=== PATIENT | male | born 1960 | race Caucasian/White ===

== ENCOUNTER → 2018-08-13 07:20 | Outpatient (CLI) | payer OTHER, SELFPAY ==
[2018-08-13 08:41] LABS: Cholesterol 210 mg/dL (140-199); HDL Cholesterol 36 mg/dL (40-60); LDL Cholesterol Calculated 151 mg/dL (<100); Triglycerides 114 mg/dL (35-150)
[2018-08-13 08:58] LABS: Vitamin D 25 Hydroxy (D3) 28.3 ng/mL (30.0-100.0)
== END ==
PROVIDERS: PCP Student in an Organized Health Care Education/Training Program; Visit Provider Student in an Organized Health Care Education/Training Program
DX: E55.9 Vitamin D deficiency, unspecified (principal); Z13.220 Encounter for screening for lipoid disorders
CPT/HCPCS: 36415; 80061; 82306

== ENCOUNTER → 2019-02-27 09:18 | Outpatient (CLI) | payer OTHER, SELFPAY ==
--- NOTE | 2019-02-27 09:19 | DI.MRI.S_ITS ---
PROCEDURE: MR LUMBAR SPINE WO CON INDICATIONS: LOW BACK PAIN TECHNIQUE: Noncontrast sagittal T1 spin echo and T2 fast echo, sagittal STIR, axial T1 and T2 fast spin echo through the lumbar spine. In cases with scoliosis, additional coronal T2 fast spin echo may be performed. COMPARISON: None. FINDINGS: Image quality: Excellent. Alignment and Curvature: Grade 1 retrolisthesis of L3 on L4 and L4 on L5. Bone Marrow: Multilevel degenerative endplate sclerosis and spurring. Diffuse facet arthropathy. No acute fracture Spinal Cord: Conus medullaris terminates at the L1 level. Visualized cord demonstrates normal signal and size. Paraspinous Soft Tissues: No paravertebral masses. L1-L2: Normal appearance. L2-L3: Normal appearance. L3-L4: Broad-based posterior disc bulge was mildly asymmetric, right greater than left. There is also bilateral facet disease. Dorsal epidural lipomatosis present there is mild to moderate central canal narrowing. Asymmetric effacement of the right lateral recess, with nerve root compression. There is minimal if any effacement of the left lateral recess. No definite right foraminal narrowing. Mild left foraminal stenosis.. L4-L5: Broad-based posterior disc bulge and bilateral facet arthropathy. No definite central canal narrowing. Partial effacement of both lateral recesses with bilaterally symmetric appearance. Severe bilateral foraminal stenoses with nerve root compression L5-S1: Normal appearance. IMPRESSION: Transitional lumbosacral vertebra designated L5. Please see the montage image for additional clarification of the spinal segmental level nomenclature used in this report and prior to any spinal intervention. Grade 1 retrolisthesis of L3 on L4 and L4 on L5. Mild to moderate L3-L4 central canal narrowing. Asymmetric right-sided subarticular narrowing raising the possibility of impingement of the right descending L4 nerve root. Severe bilateral L4-L5 foraminal stenoses. Dictated by: Edgar Pisano M.D. on 02/27/2019 at 11:02 Approved by: Edgar Pisano M.D. on 02/27/2019 at 11:10
== END ==
PROVIDERS: PCP Student in an Organized Health Care Education/Training Program; Visit Provider Student in an Organized Health Care Education/Training Program
DX: M54.5 Low back pain (principal); M43.16 Spondylolisthesis, lumbar region; M48.061 Spinal stenosis, lumbar region without neurogenic claudication
CPT/HCPCS: 72148

== ENCOUNTER → 2019-06-25 10:17 | Outpatient (CLI) | payer OTHER, SELFPAY ==
[2019-06-25 11:03] LABS: Hematocrit 46.8 % (41-53); Hemoglobin 16.3 g/dL (13.5-17.5); Mean Corpuscular HGB Conc 34.8 % (30-36); Mean Corpuscular Hemoglobin 31.1 PG (26-34); Mean Corpuscular Volume 89.4 fL (80-100); Platelet Count 206 X10^3/uL (150-400); Red Blood Cell Count 5.23 X10^6/uL (4.5-5.9); Red Cell Distribution Width 13.3 % (11.6-14.8); White Blood Cell Count 7.1 X10^3/uL (4.5-11.0)
[2019-06-25 11:23] LABS: HEMOLYSIS < 15 (0-50); Iron 70 ug/dL (49-181)
[2019-06-25 11:34] LABS: Percent Iron Saturation 26 % (20-50); Total Iron Binding Capacity 269 ug/dL (261-462); Transferrin 223 mg/dL (206-381)
[2019-06-25 11:58] LABS: Prostate Specific Antigen Scrn 1.95 ng/mL (0.1-4.0)
[2019-06-25 12:17] LABS: Vitamin B12 418 pg/mL (239-931)
== END ==
PROVIDERS: PCP Student in an Organized Health Care Education/Training Program; Visit Provider Student in an Organized Health Care Education/Training Program
DX: Z12.5 Encounter for screening for malignant neoplasm of prostate (principal); R25.2 Cramp and spasm; G62.9 Polyneuropathy, unspecified; G25.81 Restless legs syndrome
CPT/HCPCS: 36415; 82607; 83540; 83550; 83735; 85027; G0103

== ENCOUNTER → 2020-02-26 13:13 | Outpatient (CLI) | payer OTHER, SELFPAY ==
--- NOTE | 2020-02-26 13:14 | DI.RAD.S_ITS ---
PROCEDURE: XR RIBS LT MIN 3V W CXR1V INDICATIONS: fall; Rib contusion TECHNIQUE: 2 views of the left ribs were acquired, along with a single view chest. COMPARISON: None. FINDINGS: Surgical changes and devices: None. Bones and chest wall: No fractures or dislocations. No suspicious bony lesions. Overlying soft tissues appear unremarkable. Lungs and pleura: No pleural effusions or pneumothorax. Lungs appear clear. Mediastinum: Mediastinal contours appear normal. Heart size is normal. IMPRESSION: No fracture found. Please note that nondisplaced rib fractures may be more easily visualized in approximately 5 days after trauma and if unusual symptoms persist follow-up delayed plain films could be obtained. No pneumothorax seen. Dictated by: Brennan Sears M.D. on 02/26/2020 at 14:04 Approved by: Brennan Sears M.D. on 02/26/2020 at 14:06
== END ==
PROVIDERS: PCP Student in an Organized Health Care Education/Training Program; Referring Provider Student in an Organized Health Care Education/Training Program; Visit Provider Student in an Organized Health Care Education/Training Program
DX: S20.219A Contusion of unspecified front wall of thorax, initial encounter (principal); W19.XXXA Unspecified fall, initial encounter
CPT/HCPCS: 71101

== ENCOUNTER → 2020-09-08 09:31 | Outpatient (CLI) | payer OTHER, SELFPAY ==
[2020-09-08 10:27] LABS: BUN Creatinine Ratio 20.7 (6-22); Blood Urea Nitrogen 17 mg/dL (9-20); Carbon Dioxide 33 mmol/L (22-32); Chloride 101 mmol/L (98-107); Estimated Glomerular Filt Rate > 60.0 mL/min (>60); Glucose 85 mg/dL (70-100); HEMOLYSIS < 15 (0-50); Potassium 3.6 mmol/L (3.4-5.1); Sodium 138 mmol/L (137-145)
[2020-09-08 10:49] LABS: Prostate Specific Antigen Scrn 2.24 ng/mL (0.1-4.0)
[2020-09-08 10:57] LABS: Vitamin D 25 Hydroxy (D3) 20.4 ng/mL (30.0-100.0)
== END ==
PROVIDERS: PCP Student in an Organized Health Care Education/Training Program; Referring Provider Student in an Organized Health Care Education/Training Program; Visit Provider Student in an Organized Health Care Education/Training Program
DX: G25.81 Restless legs syndrome (principal); Z79.899 Other long term (current) drug therapy; Z12.5 Encounter for screening for malignant neoplasm of prostate; E55.9 Vitamin D deficiency, unspecified
CPT/HCPCS: 36415; 80048; 82306; G0103

== ENCOUNTER 2021-08-04 08:15 | Outpatient (RCR) | payer OTHER, SELFPAY ==
--- NOTE | 2021-07-12 17:32 | PT.OIE ---
Current Diagnoses Other cervical disc degeneration, unspecified cervical region (07/12/21) Radiculopathy, lumbar region (07/12/21) Cervicalgia (07/12/21) Other muscle spasm (07/12/21) Past Medical History (Last Updated 09/08/20 @ 09:31 by Rickie Kumar MD) ADHD Anorexia nervosa Depression Lower back injury (~1980) Visit Care Team Role Provider Type Rickie Kumar MD Attending Provider Physician Family Provider Primary Care Provider Referring Provider Specialty: Internal Medicine Address: [address] [place] [address], [address], [facility] Email: [email or web address] Physical Therapy Initial Evaluation PT-OP-A Visit Information Start: 07/12/21 16:51 Freq: Status: Active Protocol: Document 07/12/21 09:45 DCW (Rec: 07/12/21 17:05 DCW [id number]) Out-Patient Physical Therapy Visit Information Visit Information Visit Type Initial Evaluation Visit Start Time 09:45 Visit Stop Time 10:30 Total Visit Minutes 45 Visit Number 1 Number of AWARD CLERK Visits 0 Evaluation Information Evaluation Date 07/12/21 PT-OP-B Current Condition Start: 07/12/21 16:51 Freq: Status: Active Protocol: Document 07/12/21 09:45 DCW (Rec: 07/12/21 17:05 DCW [id number]) Current Condition History of Current Condition Onset Date Long-standing history Current Complaints Cervical pain, radicular right arm and shoulder pain History of Current Condition Pt is a 60 year old male presenting with worsening complaints of neck pain and right shoulder pain. 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 Pt notes he always does this with is right hand, and it seems as though he is beginning to have more and more pain and difficulty when he does it. Pt notes he has the most pain just letting his arm hang down at his side, reports it just hangs there and feels heavy. Has noticed that if he props his arm up with an arm rest or holds it over his head, it doesn't hurt as much. Pt reports that just last night, he was woken up by an 8/10. Pt also does note that he has a 40+ year history of low back pain since slipping and falling when he was in the [employer] in the early 80s. Slowly progressed from intermittent pain to a fairly constant and debilitating pain, but had a steroid injection a few years ago, which seems to have fixed it for now, but he would also like his low back addressed if possible, so he doesn't need to worry about another injection in the future. PT-OP-C Subjective Start: 07/12/21 16:51 Freq: Status: Active Protocol: Document 07/12/21 09:45 DCW (Rec: 07/12/21 17:05 DCW [id number]) OP-PT Subjective Patient Comments Patient Comments I think my doctor is trying to get me an MRI, but I don't know if he actually ordered it yet. Patient Questionnaires Quick Dash- Upper Extremity Quick Dash UE Score 22.73% Quick Dash UE Impairment 20 to 39% Impaired (Score 20- 39) OP-PT Pain Assessment Pain Assessment Grid Paper Pain Assessment Grid Completed Yes Location Right Shoulder Intensity 7 Scale Used Numeric (0 - 10) PT-OP-F Manual Assessment Start: 07/12/21 16:51 Freq: Status: Active Protocol: Document 07/12/21 09:45 DCW (Rec: 07/12/21 17:16 DCW [id number]) Manual Assessments Soft Tissue Assessment Soft Tissue Mobility Assessment Moderate-severe tone with tenderness to palpation 3/4: wincing and withdraw along right suboccipitals, cervical paraspinals, levator scap, upper trap, and parascapular musculature. Joint Mobility Assessment Joint Mobility Assessment Very poor right scapulothoracic rhythm with shoulder abduction, entire right shoulder depressed at rest PT-OP-J Posture/Palpation/Skin Start: 07/12/21 17:17 Freq: Status: Active Protocol: Document 07/12/21 09:45 DCW (Rec: 07/12/21 17:18 DCW [id number]) Posture Evaluation Position Sitting Evaluation View Posterior Head/C-Spine Posture Rotated Right,Side Bent Right Scapula Posture (R) Rotated Down,(R) Depressed PT-OP-K Range of Motion Start: 07/12/21 16:51 Freq: Status: Active Protocol: Document 07/12/21 09:45 DCW (Rec: 07/12/21 17:16 DCW [id number]) Cervical Spine Range of Motion Cervical Spine Active Degrees Testing Position Sitting Flexion 40 Extension 30 Rotation Left 70 Rotation Right 72 Lateral Flexion Left 25 Lateral Flexion Right 35 ROM Limitations Soft Tissue Tightness,Muscle Tone,Pain PT-OP-L Special Tests Start: 07/12/21 16:51 Freq: Status: Active Protocol: Document 07/12/21 09:45 DCW (Rec: 07/12/21 17:16 DCW [id number]) Special Tests Cervical Spine Special Tests Traction Test Results Instant relief of symptoms Spurling's Test Test Results Positive Slump Test Results Positive Passive Neck Flexion Test Results Positive Foraminal Compression Test Results Positive Shoulder Special Tests Painful Arc Test Results Positive R Passive ER Rotator Cuff Test Results Negative Empty Can Test Results Negative Drop Arm Rotator Cuff Test Results Negative Belly Press Test Results Negative PT-OP-M Strength Start: 07/12/21 16:51 Freq: Status: Active Protocol: Document 07/12/21 09:45 DCW (Rec: 07/12/21 17:16 DCW [id number]) Cervical Spine Strength Cervical Spine Manual Muscle Testing Comments Attempted deep neck flexor activation resulted in instant increased radicular symptoms Shoulder Strength Shoulder Manual Muscle Testing Right Flexion 4 Good Abduction (C5) 4 Good External Rotation 4 Good Internal Rotation 4 Good Left Flexion 4+ Good+ Abduction (C5) 4+ Good+ External Rotation 4+ Good+ Internal Rotation 4+ Good+ PT-OP-R Modalities Start: 07/12/21 16:51 Freq: Status: Active Protocol: Document 07/12/21 09:45 DCW (Rec: 07/12/21 17:05 DCW [id number]) Spinal Traction Traction Treatment Cervical Method Static Patient Position Supine Force Applied (Pounds) 20 Duration of Treatment (Minutes) 10 Heating Pad Applied No PT-OP-T Assessment and Plan Start: 07/12/21 16:51 Freq: Status: Active Protocol: Document 07/12/21 09:45 DCW (Rec: 07/12/21 17:32 DCW [id number]) Physical Therapy Assessment Rehab Potential Rehabilitation Potential Good Evaluation Complexity Number of Personal Factors/Comorbidities 1-2 Number of Body Systems Impaired 3 Clinical Presentation at Evaluation Stable Impairments Impairments Functional Activities, Functional Mobility,Pain, Posture,ROM,Soft Tissue Mobility,Strength,Tone Goals Three Impairment All cervical compression results in increased radicular symptoms [facility]cf Goal (LTG) Pt to tolerate all cervical positioning and compression without increased radicular symptoms to show centralization of pain LTG Duration 09/12/21 Two Impairment Cervical/shoulder pain interrupts pt's sleep Chcf Goal (LTG) Pt to report no instances of pain-caused sleep disturbances over an entire week. LTG Duration 09/12/21 One Impairment Pt does not have an appropriate home exercise program Short Term Goal (STG) Pt to be independent and compliant with an appropriate HEP STG Duration 08/12/21 Assessment Summary Assessment Pt presents with signs and symptoms consistent with cervical nerve impingement, resulting in radicular symptoms. Pt's pain and stiffness through his arm are immediately and completely resolved with cervical traction. Pt does have some fairly significant tone throughout his right paraspinals and shoulder, which may be due to the cervical impingement, or may actually be tight enough that his musculature is pulling on his neck with enough force to create a decreased foraminal space. Pt should benefit from skilled therapy focusing on reducing tone and improving intervertebral spacing, however if pt does not make appropriate progress, may greatly benefit from advanced imaging. Did have trial of traction unit today, and pt was entirely pain-free during entire trial, but slowly regain the pain after traction was released. Physical Therapy Plan Frequency and Duration Frequency of Treatment 2x/Week Duration of Treatment Two months Plan of Care Start Date 07/12/21 Plan of Care End Date 09/12/21 Therapeutic Interventions Therapeutic Interventions Home Exercise Program,Joint Mobilizations,Manual Therapy, Neuromuscular Re-education, Patient/Caregiver Education, Self-Care/Home Management,Soft Tissue Mobilization, Therapeutic Activities, Therapeutic Exercises Modalities Cold Pack/Ice Massage,Electric Stimulation,Hot Packs, Traction- Mechanical Next Visit Focus/Plan Next Note Type Treatment Note Next Visit Plan Traction, STM, joint mobs, cervical strengthening as tolerated
--- NOTE | 2021-07-12 17:35 | PT.OPPOC ---
Physical, Occupational & Speech Therapy At [facility] Current Diagnoses Other cervical disc degeneration, unspecified cervical region (07/12/21) Radiculopathy, lumbar region (07/12/21) Cervicalgia (07/12/21) Other muscle spasm (07/12/21) Visit Care Team Role Provider Type Rickie Kumar MD Attending Provider Physician Family Provider Primary Care Provider Referring Provider Specialty: Internal Medicine Address: [address] [place] [address], [facility] [address], [address] Email: [email or web address] Plan Of Care PT-OP-T Assessment and Plan Start: 07/12/21 16:51 Freq: Status: Active Protocol: Document 07/12/21 09:45 DCW (Rec: 07/12/21 17:32 DCW [id number]) Physical Therapy Assessment Rehab Potential Rehabilitation Potential Good Evaluation Complexity Number of Personal Factors/Comorbidities 1-2 Number of Body Systems Impaired 3 Clinical Presentation at Evaluation Stable Impairments Impairments Functional Activities, Functional Mobility,Pain, Posture,ROM,Soft Tissue Mobility,Strength,Tone Goals Three Impairment All cervical compression results in increased radicular symptoms Yeast Culture Developer Goal (LTG) Pt to tolerate all cervical positioning and compression without increased radicular symptoms to show certralization of pain LTG Duration 09/12/21 Two Impairment Cervical/shoulder pain interrupts pt's sleep Halfway Goal (LTG) Pt to report no instances of pain-caused sleep disturbances over an entire week. LTG Duration 09/12/21 One Impairment Pt does not have an appropriate home exercise program Short Term Goal (STG) Pt to be independent and compliant with an appropriate HEP STG Duration 08/12/21 Assessment Summary Assessment Pt presents with signs and symptoms consistent with cervical nerve impingement, resulting in radicular symptoms. Pt's pain and stiffness through his arm are immediately and completely resolved with cervical traction. Pt does have some fairly significant tone throughout his right paraspinals and shoulder, which may be due to the cervical impingement, or may actually be tight enough that his musculature is pulling on his neck with enough force to create a decreased foraminal space. Pt should benefit from skilled therapy focusing on reducing tone and improving intervertebral spacing, however if pt does not make appropriate progress, may greatly benefit from advanced imaging. Did have trial of traction unit today, and pt was entirely pain-free during entire trial, but slowly regain the pain after traction was released. Physical Therapy Plan Frequency and Duration Frequency of Treatment 2x/Week Duration of Treatment Two months Plan of Care Start Date 07/12/21 Plan of Care End Date 09/12/21 Therapeutic Interventions Therapeutic Interventions Home Exercise Program,Joint Mobilizations,Manual Therapy, Neuromuscular Re-education, Patient/Caregiver Education, Self-Care/Home Management,Soft Tissue Mobilization, Therapeutic Activities, Therapeutic Exercises Modalities Cold Pack/Ice Massage,Electric Stimulation,Hot Packs, Traction- Mechanical Next Visit Focus/Plan Next Note Type Treatment Note Next Visit Plan Traction, STM, joint mobs, cervical strengthening as tolerated Plan of Care Dates Plan of Care Start Date 07/12/21 Plan of Care End Date 09/12/21 Electronically Signed by: Benitez Mcneal, PT 07/12/21 3329 Please Sign and Return: I have reviewed this Plan of Care and certify that the skilled therapy services above are required to meet the patient?s needs. Physician Signature Date Printed Name and Credentials Clinical Instructor Signature Printed Name and Credentials
--- NOTE | 2021-07-14 10:00 | PT.OTN ---
Current Diagnoses Other cervical disc degeneration, unspecified cervical region (07/14/21) Radiculopathy, lumbar region (07/14/21) Cervicalgia (07/14/21) Other muscle spasm (07/14/21) Physical Therapy Treatment Note PT-OP-A Visit Information Start: 07/12/21 16:51 Freq: Status: Active Protocol: Document 07/14/21 09:05 SP (Rec: 07/14/21 10:27 SP [id number]) Out-Patient Physical Therapy Visit Information Visit Information Visit Type Treatment Note Visit Start Time 09:05 Visit Stop Time 10:00 Total Visit Minutes 55 Visit Number 2 Number of SETTER UP Visits 2 Evaluation Information Evaluation Date 07/12/21 PT-OP-B Current Condition Start: 07/12/21 16:51 Freq: Status: Active Protocol: Document 07/12/21 09:45 DCW (Rec: 07/12/21 17:05 DCW [id number]) Current Condition History of Current Condition Onset Date Long-standing history Current Complaints Cervical pain, radicular right arm and shoulder pain History of Current Condition Pt is a 60 year old male presenting with worsening complaints of neck pain and right shoulder pain. 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 Pt notes he always does this with is right hand, and it seems as though he is beginning to have more and more pain and difficulty when he does it. Pt notes he has the most pain just letting his arm hang down at his side , reports it just hangs there and feels heavy. Has noticed that if he props his arm up with an arm rest or holds it over his head, it doesn't hurt as much. Pt reports that just last night, he was woken up by an 8/10. Pt also does note that he has a 40+ year history of low back pain since slipping and falling when he was in the [employer] in the early 80s. Slowly progressed from intermittent pain to a fairly constant and debilitating pain , but had a steroid injection a few years ago, which seems to have fixed it for now, but he would also like his low back addressed if possible, so he doesn't need to worry about another injection in the future. PT-OP-C Subjective Start: 07/12/21 16:51 Freq: Status: Active Protocol: Document 07/14/21 09:05 SP (Rec: 07/14/21 10:27 SP [id number]) OP-PT Subjective Patient Comments Patient Comments Pt reports felt better after last tx but pain comes back within few hours after treatment. He finds slumped forward positioning gives the best relief standing better than sitting better than laying down. Upon arrival today R arm tucked in jacket for support and states neck and R shld achiness/pain 03/01 extends posterior neck posterior R shld and into distal deltoid. Sleeps on L side with pillow under head only and finds wakes up often needing to reposition for comfort. He was so suprise how instantaneous the pain is relieved with traction and wants to start with today and what else can he do beside stretching R arm over head postioning for self relief because can't PT-OP-F Manual Assessment Start: 07/12/21 16:51 Freq: Status: Active Protocol: Document 07/12/21 09:45 DCW (Rec: 07/12/21 17:16 DCW [id number]) Manual Assessments Soft Tissue Assessment Soft Tissue Mobility Assessment Moderate-severe tone with tenderness to palpation 3/4: wincing and withdraw along right suboccipitals, cervical paraspinals, levator scap, upper trap, and parascapular musculature. Joint Mobility Assessment Joint Mobility Assessment Very poor right scapulothoracic rhythm with shoulder abduction, entire right shoulder depressed at rest PT-OP-J Posture/Palpation/Skin Start: 07/12/21 17:17 Freq: Status: Active Protocol: Document 07/12/21 09:45 DCW (Rec: 07/12/21 17:18 DCW [id number]) Posture Evaluation Position Sitting Evaluation View Posterior Head/C-Spine Posture Rotated Right,Side Bent Right Scapula Posture (R) Rotated Down,(R) Depressed PT-OP-K Range of Motion Start: 07/12/21 16:51 Freq: Status: Active Protocol: Document 07/12/21 09:45 DCW (Rec: 07/12/21 17:16 DCW [id number]) Cervical Spine Range of Motion Cervical Spine Active Degrees Testing Position Sitting Flexion 40 Extension 30 Rotation Left 70 Rotation Right 72 Lateral Flexion Left 25 Lateral Flexion Right 35 ROM Limitations Soft Tissue Tightness,Muscle Tone,Pain PT-OP-L Special Tests Start: 07/12/21 16:51 Freq: Status: Active Protocol: Document 07/12/21 09:45 DCW (Rec: 07/12/21 17:16 DCW [id number]) Special Tests Cervical Spine Special Tests Traction Test Results Instant relief of symptoms Spurling's Test Test Results Positive Slump Test Results Positive Passive Neck Flexion Test Results Positive Foraminal Compression Test Results Positive Shoulder Special Tests Painful Arc Test Results Positive R Passive ER Rotator Cuff Test Results Negative Empty Can Test Results Negative Drop Arm Rotator Cuff Test Results Negative Belly Press Test Results Negative PT-OP-M Strength Start: 07/12/21 16:51 Freq: Status: Active Protocol: Document 07/12/21 09:45 DCW (Rec: 07/12/21 17:16 DCW [id number]) Cervical Spine Strength Cervical Spine Manual Muscle Testing Comments Attempted deep neck flexor activation resulted in instant increased radicular symptoms Shoulder Strength Shoulder Manual Muscle Testing Right Flexion 4 Good Abduction (C5) 4 Good External Rotation 4 Good Internal Rotation 4 Good Left Flexion 4+ Good+ Abduction (C5) 4+ Good+ External Rotation 4+ Good+ Internal Rotation 4+ Good+ PT-OP-Q Treatments Start: 07/12/21 16:51 Freq: Status: Active Protocol: Document 07/14/21 09:05 SP (Rec: 07/14/21 10:27 SP [id number]) Therapeutic Exercises Standing Exercises CS retraction w/ elevated posture Standing Exercise Name added to HEP- understands in successful positioning, will progress upright Reps/Minutes 3 reps x5 sec hold Comments good feedback tolerant range in standing end of tx self STMs Standing Exercise Name UT, interscap racquetball in sock on wall, theracane post neck MWM nod/turn Side right Resistance added to HEP if can get Reps/Minutes 20 ball on wall, theracane post neck head nods/turns small range Comments good feedback response with short time MWM ulnar nerve glide Standing Exercise Name added to HEP Side right Reps/Minutes x5 Comments good feedback response and proper form- painfree tricep stretch Standing Exercise Name reviewed self HEP given by physican Side right Equipment Used supported by LUE or against wall Reps/Minutes 20 sec x3 Comments good feedback pain relief Manual Therapy Treatment Soft Tissue Mobilization STMs Comments assessed post neck UT, subocc, pec minor, deltoid in supine- not welcoming positioning, assessed seated, still irritating. benefited self racquetball on wall with good hurt massage that think will help Educated small movements time good feedback tolerance (10 sec today x3) Manual Techniques PNF R scapulothoracic Type retraction/ depression Body Location R scap comples Body Position L Sidelying Comments has good relief almost no pain , but only for few reps. Self-Care/Home Management Treatment Education Patient Education Joint Protection,Posture Other Education Education on L side tolerant sleeping w/ pillows between knees, under R arm and pillow under head enought maintain neutral CS alignment. Pt states better less pain if flexes CS more forward. PT-OP-R Modalities Start: 07/12/21 16:51 Freq: Status: Active Protocol: Document 07/14/21 09:05 SP (Rec: 07/14/21 10:27 SP [id number]) Spinal Traction Traction Treatment Cervical Method Static Patient Position Supine Force Applied (Pounds) 12 Duration of Treatment (Minutes) 10 Heating Pad Applied No Traction Treatment Comment wedge under BLE: instant relief of posterior neck pain 7-8/10 radiating posterolateral L shld and into tricep and bicep to elbow, only feels little achy bruise feeling into distal deltoid, painfree systems otherwise. At end 9.5 min starts to feel achiness into R distal deltoid . PT-OP-T Assessment and Plan Start: 07/12/21 16:51 Freq: Status: Active Protocol: Document 07/14/21 09:05 SP (Rec: 07/14/21 10:27 SP [id number]) Physical Therapy Assessment Goals Three Impairment All cervical compression results in increased radicular symptoms Thermoforming Machine Operator Goal (LTG) Pt to tolerate all cervical positioning and compression without increased radicular symptoms to show certralization of pain LTG Duration 09/12/21 Two Impairment Cervical/shoulder pain interrupts pt's sleep Thermoforming Machine Operator Goal (LTG) Pt to report no instances of pain-caused sleep disturbances over an entire week. LTG Duration 09/12/21 One Impairment Pt does not have an appropriate home exercise program Short Term Goal (STG) Pt to be independent and compliant with an appropriate HEP STG Duration 08/12/21 Assessment Summary Assessment Pt continues present signs/ symptoms of cervical impingement, gets instant relief from cervical traction almost symptom free in neck and R arm. Assessed R Shld AROM [place] tricep stretch gave alot of relief is his go to at home. Initiated self massage racquetball on wall to UT, interscap, theracane for posterior neck MWM turn/ nods, ulnar nerve glide then able to do CS chin tuck in painfree range to start. End of tx I feel better and things can do at home. Pt wondered if would be beneficial to get a home cervical traction unit now knowing is constant relief. Physical Therapy Plan Frequency and Duration Frequency of Treatment 2x/Week Duration of Treatment Two months Plan of Care Start Date 07/12/21 Plan of Care End Date 09/12/21 Therapeutic Interventions Therapeutic Interventions Home Exercise Program,Joint Mobilizations,Manual Therapy, Neuromuscular Re-education, Patient/Caregiver Education, Self-Care/Home Management,Soft Tissue Mobilization, Therapeutic Activities, Therapeutic Exercises Modalities Cold Pack/Ice Massage,Electric Stimulation,Hot Packs, Traction- Mechanical Next Visit Focus/Plan Next Note Type Treatment Note Next Visit Plan Assess reponse to CS traction, new HEP: self STMs, ulnar nerve glide, tricep stretch, CS retraction ease AROM in standing. NExt tx: continue traction, assess if home unit beneficial , start process. POC: Traction, STM, joint mobs , cervical strengthening as tolerated
--- NOTE | 2021-07-21 10:30 | PT.OTN ---
Current Diagnoses Other cervical disc degeneration, unspecified cervical region (07/14/21) Radiculopathy, lumbar region (07/14/21) Cervicalgia (07/14/21) Other muscle spasm (07/14/21) Physical Therapy Treatment Note PT-OP-A Visit Information Start: 07/12/21 16:51 Freq: Status: Active Protocol: Document 07/21/21 09:50 SP (Rec: 07/21/21 10:32 SP [id number]) Out-Patient Physical Therapy Visit Information Visit Information Visit Type Treatment Note Visit Start Time 09:50 Visit Stop Time 10:30 Total Visit Minutes 40 Visit Number 3 Number of [employer] Visits 3 Evaluation Information Evaluation Date 07/12/21 PT-OP-B Current Condition Start: 07/12/21 16:51 Freq: Status: Active Protocol: Document 07/12/21 09:45 DCW (Rec: 07/12/21 17:05 DCW [id number]) Current Condition History of Current Condition Onset Date Long-standing history Current Complaints Cervical pain, radicular right arm and shoulder pain History of Current Condition Pt is a 60 year old male presenting with worsening complaints of neck pain and right shoulder pain. 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 Pt notes he always does this with is right hand, and it seems as though he is beginning to have more and more pain and difficulty when he does it. Pt notes he has the most pain just letting his arm hang down at his side , reports it just hangs there and feels heavy. Has noticed that if he props his arm up with an arm rest or holds it over his head, it doesn't hurt as much. Pt reports that just last night, he was woken up by an 8/10. Pt also does note that he has a 40+ year history of low back pain since slipping and falling when he was in the [employer] in the early 80s. Slowly progressed from intermittent pain to a fairly constant and debilitating pain , but had a steroid injection a few years ago, which seems to have fixed it for now, but he would also like his low back addressed if possible, so he doesn't need to worry about another injection in the future. PT-OP-C Subjective Start: 07/12/21 16:51 Freq: Status: Active Protocol: Document 07/21/21 09:50 SP (Rec: 07/21/21 10:32 SP [id number]) OP-PT Subjective Patient Comments Patient Comments Pt reports self massage ball on wall is irritating so stopped. Good response and compliant wtih stretches and exercises seem to work the best. Tried to do elevated push up and caused pain so stopped. Wants to understand mechanics of his pain and how get rid of and if can get home traction unit. Was painfree yesterday and slept well but having pain again today. Pain not really in feet today. Pt reports hasn't had any back pain in quite a while. PT-OP-F Manual Assessment Start: 07/12/21 16:51 Freq: Status: Active Protocol: Document 07/12/21 09:45 DCW (Rec: 07/12/21 17:16 DCW [id number]) Manual Assessments Soft Tissue Assessment Soft Tissue Mobility Assessment Moderate-severe tone with tenderness to palpation 3/4: wincing and withdraw along right suboccipitals, cervical paraspinals, levator scap, upper trap, and parascapular musculature. Joint Mobility Assessment Joint Mobility Assessment Very poor right scapulothoracic rhythm with shoulder abduction, entire right shoulder depressed at rest PT-OP-J Posture/Palpation/Skin Start: 07/12/21 17:17 Freq: Status: Active Protocol: Document 07/12/21 09:45 DCW (Rec: 07/12/21 17:18 DCW [id number]) Posture Evaluation Position Sitting Evaluation View Posterior Head/C-Spine Posture Rotated Right,Side Bent Right Scapula Posture (R) Rotated Down,(R) Depressed PT-OP-K Range of Motion Start: 07/12/21 16:51 Freq: Status: Active Protocol: Document 07/12/21 09:45 DCW (Rec: 07/12/21 17:16 DCW [id number]) Cervical Spine Range of Motion Cervical Spine Active Degrees Testing Position Sitting Flexion 40 Extension 30 Rotation Left 70 Rotation Right 72 Lateral Flexion Left 25 Lateral Flexion Right 35 ROM Limitations Soft Tissue Tightness,Muscle Tone,Pain PT-OP-L Special Tests Start: 07/12/21 16:51 Freq: Status: Active Protocol: Document 07/12/21 09:45 DCW (Rec: 07/12/21 17:16 DCW [id number]) Special Tests Cervical Spine Special Tests Traction Test Results Instant relief of symptoms Spurling's Test Test Results Positive Slump Test Results Positive Passive Neck Flexion Test Results Positive Foraminal Compression Test Results Positive Shoulder Special Tests Painful Arc Test Results Positive R Passive ER Rotator Cuff Test Results Negative Empty Can Test Results Negative Drop Arm Rotator Cuff Test Results Negative Belly Press Test Results Negative PT-OP-M Strength Start: 07/12/21 16:51 Freq: Status: Active Protocol: Document 07/12/21 09:45 DCW (Rec: 07/12/21 17:16 DCW [id number]) Cervical Spine Strength Cervical Spine Manual Muscle Testing Comments Attempted deep neck flexor activation resulted in instant increased radicular symptoms Shoulder Strength Shoulder Manual Muscle Testing Right Flexion 4 Good Abduction (C5) 4 Good External Rotation 4 Good Internal Rotation 4 Good Left Flexion 4+ Good+ Abduction (C5) 4+ Good+ External Rotation 4+ Good+ Internal Rotation 4+ Good+ PT-OP-Q Treatments Start: 07/12/21 16:51 Freq: Status: Active Protocol: Document 07/21/21 09:50 SP (Rec: 07/21/21 10:32 SP [id number]) Therapeutic Exercises Sidelying Exercises open book Sidelying Exercise Name added to HEP Side right Reps/Minutes x5 w/ and without 3 breath Comments cued head turn with arm- good feedback painfree, good movement feel Standing Exercises lat stretch Standing Exercise Name lat and shld abd at wall Side right Resistance reviewed self stretch Reps/Minutes 30 hold x2 each Comments good response eliminates pain but can' do all the time CS retraction w/ elevated posture Standing Exercise Name reviewed HEP- understands in successful positioning, will progress upright Reps/Minutes 3 reps x5 sec hold Comments good feedback tolerant range in free standing away from wall self STMs Standing Exercise Name causes more irritation so DC ulnar nerve glide Standing Exercise Name reviewed HEP Side right Reps/Minutes x5 Comments good feedback response and proper form- painfree tricep stretch Standing Exercise Name reviewed self HEP given by physican Side right Equipment Used supported by LUE or against wall Reps/Minutes 20 sec x3 Comments good feedback eliminates pain PT-OP-R Modalities Start: 07/12/21 16:51 Freq: Status: Active Protocol: Document 07/21/21 09:50 SP (Rec: 07/21/21 10:32 SP [id number]) Spinal Traction Traction Treatment Cervical Method Static Patient Position Supine Force Applied (Pounds) 20 Duration of Treatment (Minutes) 10 Heating Pad Applied No Traction Treatment Comment wedge under BLE: instant pain relief. 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 LTG Duration 09/12/21 One Impairment Pt does not have an appropriate home exercise program Short Term Goal (STG) Pt to be independent and compliant with an appropriate HEP STG Duration 08/12/21 Assessment Summary Assessment Pt responded well to HEP review in standing best and initiated open book in sidelying with RUE painfree, unable to perform > 1 rep with L before pain returned in R shdl due to laying on it so can only perform RUE at this time with relief. Pt continues to have instant relief with mechanical traction, meets with PT next. [employer] discussed calling referring physicain Dr Kumar to possibly start progess to acquire a home unit for carryover relief. Pt reports waiting on referral reivew for order of MRI. Physical Therapy Plan Frequency and Duration Frequency of Treatment 2x/Week Duration of Treatment Two months Plan of Care Start Date 07/12/21 Plan of Care End Date 09/12/21 Therapeutic Interventions Therapeutic Interventions Home Exercise Program,Joint Mobilizations,Manual Therapy, Neuromuscular Re-education, Patient/Caregiver Education, Self-Care/Home Management,Soft Tissue Mobilization, Therapeutic Activities, Therapeutic Exercises Modalities Cold Pack/Ice Massage,Electric Stimulation,Hot Packs, Traction- Mechanical Next Visit Focus/Plan Next Note Type Treatment Note Next Visit Plan Assess reponse to HEP and carryover deminished relief from mechanical cervical traction end of last tx. NExt tx: continue traction, assess if home unit beneficial , start process. POC: Traction, STM, joint mobs , cervical strengthening as tolerated
--- NOTE | 2021-07-25 11:55 | PT.OTN ---
Current Diagnoses Other cervical disc degeneration, unspecified cervical region (07/25/21) Radiculopathy, lumbar region (07/25/21) Cervicalgia (07/25/21) Other muscle spasm (07/25/21) Physical Therapy Treatment Note PT-OP-A Visit Information Start: 07/12/21 16:51 Freq: Status: Active Protocol: Document 07/25/21 11:19 DCW (Rec: 07/25/21 11:55 DCW [id number]) Out-Patient Physical Therapy Visit Information Visit Information Visit Type Treatment Note Visit Start Time 11:19 Visit Stop Time 12:00 Total Visit Minutes 41 Visit Number 4 Number of WARNING COORDINATION METEOROLOGIST Visits 0 Evaluation Information Evaluation Date 07/12/21 PT-OP-B Current Condition Start: 07/12/21 16:51 Freq: Status: Active Protocol: Document 07/12/21 09:45 DCW (Rec: 07/12/21 17:05 DCW [id number]) Current Condition History of Current Condition Onset Date Long-standing history Current Complaints Cervical pain, radicular right arm and shoulder pain History of Current Condition Pt is a 60 year old male presenting with worsening complaints of neck pain and right shoulder pain. 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 Pt notes he always does this with is right hand, and it seems as though he is beginning to have more and more pain and difficulty when he does it. Pt notes he has the most pain just letting his arm hang down at his side , reports it just hangs there and feels heavy. Has noticed that if he props his arm up with an arm rest or holds it over his head, it doesn't hurt as much. Pt reports that just last night, he was woken up by an 8/10. Pt also does note that he has a 40+ year history of low back pain since slipping and falling when he was in the [employer] in the early 80s. Slowly progressed from intermittent pain to a fairly constant and debilitating pain , but had a steroid injection a few years ago, which seems to have fixed it for now, but he would also like his low back addressed if possible, so he doesn't need to worry about another injection in the future. PT-OP-C Subjective Start: 07/12/21 16:51 Freq: Status: Active Protocol: Document 07/25/21 11:19 DCW (Rec: 07/25/21 11:55 DCW [id number]) OP-PT Subjective Patient Comments Patient Comments Pt reports he has been doing much better, has found that if he maintains a forward flexed posture through his cervical spine, it takes pressure off his nerve and he feels much better. PT-OP-F Manual Assessment Start: 07/12/21 16:51 Freq: Status: Active Protocol: Document 07/12/21 09:45 DCW (Rec: 07/12/21 17:16 DCW [id number]) Manual Assessments Soft Tissue Assessment Soft Tissue Mobility Assessment Moderate-severe tone with tenderness to palpation 3/4: wincing and withdraw along right suboccipitals, cervical paraspinals, levator scap, upper trap, and parascapular musculature. Joint Mobility Assessment Joint Mobility Assessment Very poor right scapulothoracic rhythm with shoulder abduction, entire right shoulder depressed at rest PT-OP-J Posture/Palpation/Skin Start: 07/12/21 17:17 Freq: Status: Active Protocol: Document 07/12/21 09:45 DCW (Rec: 07/12/21 17:18 DCW [id number]) Posture Evaluation Position Sitting Evaluation View Posterior Head/C-Spine Posture Rotated Right,Side Bent Right Scapula Posture (R) Rotated Down,(R) Depressed PT-OP-K Range of Motion Start: 07/12/21 16:51 Freq: Status: Active Protocol: Document 07/12/21 09:45 DCW (Rec: 07/12/21 17:16 DCW [id number]) Cervical Spine Range of Motion Cervical Spine Active Degrees Testing Position Sitting Flexion 40 Extension 30 Rotation Left 70 Rotation Right 72 Lateral Flexion Left 25 Lateral Flexion Right 35 ROM Limitations Soft Tissue Tightness,Muscle Tone,Pain PT-OP-L Special Tests Start: 07/12/21 16:51 Freq: Status: Active Protocol: Document 07/12/21 09:45 DCW (Rec: 07/12/21 17:16 DCW [id number]) Special Tests Cervical Spine Special Tests Traction Test Results Instant relief of symptoms Spurling's Test Test Results Positive Slump Test Results Positive Passive Neck Flexion Test Results Positive Foraminal Compression Test Results Positive Shoulder Special Tests Painful Arc Test Results Positive R Passive ER Rotator Cuff Test Results Negative Empty Can Test Results Negative Drop Arm Rotator Cuff Test Results Negative Belly Press Test Results Negative PT-OP-M Strength Start: 07/12/21 16:51 Freq: Status: Active Protocol: Document 07/12/21 09:45 DCW (Rec: 07/12/21 17:16 DCW [id number]) Cervical Spine Strength Cervical Spine Manual Muscle Testing Comments Attempted deep neck flexor activation resulted in instant increased radicular symptoms Shoulder Strength Shoulder Manual Muscle Testing Right Flexion 4 Good Abduction (C5) 4 Good External Rotation 4 Good Internal Rotation 4 Good Left Flexion 4+ Good+ Abduction (C5) 4+ Good+ External Rotation 4+ Good+ Internal Rotation 4+ Good+ PT-OP-Q Treatments Start: 07/12/21 16:51 Freq: Status: Active Protocol: Document 07/25/21 11:19 DCW (Rec: 07/25/21 11:55 DCW [id number]) Manual Therapy Treatment Soft Tissue Mobilization STMs Body Location UT, suboccipitals, pecs Manual Traction Cervical Body Position Supine Manual Techniques PNF R scapulothoracic Type retraction/ depression Body Location R scap comples Body Position L Sidelying PT-OP-R Modalities Start: 07/12/21 16:51 Freq: Status: Active Protocol: Document 07/25/21 11:19 DCW (Rec: 07/25/21 11:55 DCW [id number]) Spinal Traction Traction Treatment Cervical Method Static Patient Position Supine Force Applied (Pounds) 20 Duration of Treatment (Minutes) 10 Heating Pad Applied No Traction Treatment Comment wedge under BLE: instant pain relief. PT-OP-T Assessment and Plan Start: 07/12/21 16:51 Freq: Status: Active Protocol: Document 07/25/21 11:19 DCW (Rec: 07/25/21 11:55 DCW [id number]) Physical Therapy Assessment Goals Three Impairment All cervical compression results in increased radicular symptoms Sales Associate Key Holder Goal (LTG) Pt to tolerate all cervical positioning and compression without increased radicular symptoms to show certralization of pain LTG Duration 09/12/21 Two Impairment Cervical/shoulder pain interrupts pt's sleep [facility] Goal (LTG) Pt to report no instances of pain-caused sleep disturbances over an entire week. LTG Duration 09/12/21 One Impairment Pt does not have an appropriate home exercise program Short Term Goal (STG) Pt to be independent and compliant with an appropriate HEP STG Duration 08/12/21 Assessment Summary Assessment Pt still having significant nerve pain down arm with most activities, has instant relief with traction. PCP has submitted orders for MRI, waiting for scheduling at this time. Physical Therapy Plan Frequency and Duration Frequency of Treatment 2x/Week Duration of Treatment Two months Plan of Care Start Date 07/12/21 Plan of Care End Date 09/12/21 Therapeutic Interventions Therapeutic Interventions Home Exercise Program,Joint Mobilizations,Manual Therapy, Neuromuscular Re-education, Patient/Caregiver Education, Self-Care/Home Management,Soft Tissue Mobilization, Therapeutic Activities, Therapeutic Exercises Modalities Cold Pack/Ice Massage,Electric Stimulation,Hot Packs, Traction- Mechanical Next Visit Focus/Plan Next Note Type Treatment Note Next Visit Plan Assess reponse to HEP and carryover deminished relief from mechanical cervical traction end of last tx. NExt tx: continue traction, assess if home unit beneficial , start process. POC: Traction, STM, joint mobs , cervical strengthening as tolerated
--- NOTE | 2021-07-27 15:52 | PT.OTN ---
Current Diagnoses Other cervical disc degeneration, unspecified cervical region (07/27/21) Radiculopathy, lumbar region (07/27/21) Cervicalgia (07/27/21) Other muscle spasm (07/27/21) Physical Therapy Treatment Note PT-OP-A Visit Information Start: 07/12/21 16:51 Freq: Status: Active Protocol: Document 07/27/21 15:15 DCW (Rec: 07/27/21 15:52 DCW [id number]) Out-Patient Physical Therapy Visit Information Visit Information Visit Type Treatment Note Visit Start Time 15:15 Visit Stop Time 16:00 Total Visit Minutes 45 Visit Number 5 Number of ENVIRONMENTAL LAWYER Visits 0 Evaluation Information Evaluation Date 07/12/21 PT-OP-B Current Condition Start: 07/12/21 16:51 Freq: Status: Active Protocol: Document 07/12/21 09:45 DCW (Rec: 07/12/21 17:05 DCW [id number]) Current Condition History of Current Condition Onset Date Long-standing history Current Complaints Cervical pain, radicular right arm and shoulder pain History of Current Condition Pt is a 60 year old male presenting with worsening complaints of neck pain and right shoulder pain. 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 Pt notes he always does this with is right hand, and it seems as though he is beginning to have more and more pain and difficulty when he does it. Pt notes he has the most pain just letting his arm hang down at his side , reports it just hangs there and feels heavy. Has noticed that if he props his arm up with an arm rest or holds it over his head, it doesn't hurt as much. Pt reports that just last night, he was woken up by an 8/10. Pt also does note that he has a 40+ year history of low back pain since slipping and falling when he was in the [employer] in the early 80s. Slowly progressed from intermittent pain to a fairly constant and debilitating pain , but had a steroid injection a few years ago, which seems to have fixed it for now, but he would also like his low back addressed if possible, so he doesn't need to worry about another injection in the future. PT-OP-C Subjective Start: 07/12/21 16:51 Freq: Status: Active Protocol: Document 07/27/21 15:15 DCW (Rec: 07/27/21 15:52 DCW [id number]) OP-PT Subjective Patient Comments Patient Comments Pt notes he is feeling pretty good, has been doing inclined push-up with good results. PT-OP-F Manual Assessment Start: 07/12/21 16:51 Freq: Status: Active Protocol: Document 07/12/21 09:45 DCW (Rec: 07/12/21 17:16 DCW [id number]) Manual Assessments Soft Tissue Assessment Soft Tissue Mobility Assessment Moderate-severe tone with tenderness to palpation 3/4: wincing and withdraw along right suboccipitals, cervical paraspinals, levator scap, upper trap, and parascapular musculature. Joint Mobility Assessment Joint Mobility Assessment Very poor right scapulothoracic rhythm with shoulder abduction, entire right shoulder depressed at rest PT-OP-J Posture/Palpation/Skin Start: 07/12/21 17:17 Freq: Status: Active Protocol: Document 07/12/21 09:45 DCW (Rec: 07/12/21 17:18 DCW [id number]) Posture Evaluation Position Sitting Evaluation View Posterior Head/C-Spine Posture Rotated Right,Side Bent Right Scapula Posture (R) Rotated Down,(R) Depressed PT-OP-K Range of Motion Start: 07/12/21 16:51 Freq: Status: Active Protocol: Document 07/12/21 09:45 DCW (Rec: 07/12/21 17:16 DCW [id number]) Cervical Spine Range of Motion Cervical Spine Active Degrees Testing Position Sitting Flexion 40 Extension 30 Rotation Left 70 Rotation Right 72 Lateral Flexion Left 25 Lateral Flexion Right 35 ROM Limitations Soft Tissue Tightness,Muscle Tone,Pain PT-OP-L Special Tests Start: 07/12/21 16:51 Freq: Status: Active Protocol: Document 07/12/21 09:45 DCW (Rec: 07/12/21 17:16 DCW [id number]) Special Tests Cervical Spine Special Tests Traction Test Results Instant relief of symptoms Spurling's Test Test Results Positive Slump Test Results Positive Passive Neck Flexion Test Results Positive Foraminal Compression Test Results Positive Shoulder Special Tests Painful Arc Test Results Positive R Passive ER Rotator Cuff Test Results Negative Empty Can Test Results Negative Drop Arm Rotator Cuff Test Results Negative Belly Press Test Results Negative PT-OP-M Strength Start: 07/12/21 16:51 Freq: Status: Active Protocol: Document 07/12/21 09:45 DCW (Rec: 07/12/21 17:16 DCW [id number]) Cervical Spine Strength Cervical Spine Manual Muscle Testing Comments Attempted deep neck flexor activation resulted in instant increased radicular symptoms Shoulder Strength Shoulder Manual Muscle Testing Right Flexion 4 Good Abduction (C5) 4 Good External Rotation 4 Good Internal Rotation 4 Good Left Flexion 4+ Good+ Abduction (C5) 4+ Good+ External Rotation 4+ Good+ Internal Rotation 4+ Good+ PT-OP-Q Treatments Start: 07/12/21 16:51 Freq: Status: Active Protocol: Document 07/27/21 15:15 DCW (Rec: 07/27/21 15:52 DCW [id number]) Therapeutic Exercises Supine Exercises 3 Supine Exercise Name Supine shoulder flexion Side bilateral Resistance 2# 2 Supine Exercise Name Serratus punch Side bilateral Resistance 2# 1 Supine Exercise Name Horizontal Adduction Side bilateral Resistance 2# Manual Therapy Treatment Soft Tissue Mobilization STMs Body Location UT, suboccipitals, pecs Manual Traction Cervical Body Position Supine Manual Techniques PNF R scapulothoracic Type retraction/ depression Body Location R scap comples Body Position L Sidelying PT-OP-R Modalities Start: 07/12/21 16:51 Freq: Status: Active Protocol: Document 07/27/21 15:15 DCW (Rec: 07/27/21 15:52 DCW [id number]) Spinal Traction Traction Treatment Cervical Method Static Patient Position Supine Force Applied (Pounds) 20 Duration of Treatment (Minutes) 10 Heating Pad Applied No Traction Treatment Comment wedge under BLE: instant pain relief. PT-OP-T Assessment and Plan Start: 07/12/21 16:51 Freq: Status: Active Protocol: Document 07/27/21 15:15 DCW (Rec: 07/27/21 15:52 DCW [id number]) Physical Therapy Assessment Goals Three Impairment All cervical compression results in increased radicular symptoms [facility] Goal (LTG) Pt to tolerate all cervical positioning and compression without increased radicular symptoms to show certralization of pain LTG Duration 09/12/21 Two Impairment Cervical/shoulder pain interrupts pt's sleep [facility] Goal (LTG) Pt to report no instances of pain-caused sleep disturbances over an entire week. LTG Duration 09/12/21 One Impairment Pt does not have an appropriate home exercise program Short Term Goal (STG) Pt to be independent and compliant with an appropriate HEP STG Duration 08/12/21 Assessment Summary Assessment Pt continues to have fairly strong pain response with all STM, also increased pain vocalizations during strengthening, but pt denied pain. Physical Therapy Plan Frequency and Duration Frequency of Treatment 2x/Week Duration of Treatment Two months Plan of Care Start Date 07/12/21 Plan of Care End Date 09/12/21 Therapeutic Interventions Therapeutic Interventions Home Exercise Program,Joint Mobilizations,Manual Therapy, Neuromuscular Re-education, Patient/Caregiver Education, Self-Care/Home Management,Soft Tissue Mobilization, Therapeutic Activities, Therapeutic Exercises Modalities Cold Pack/Ice Massage,Electric Stimulation,Hot Packs, Traction- Mechanical Next Visit Focus/Plan Next Note Type Treatment Note Next Visit Plan Assess response to HEP and carryover diminished relief from mechanical cervical traction end of last tx. NExt tx: continue traction, assess if home unit beneficial , start process. POC: Traction, STM, joint mobs , cervical strengthening as tolerated
--- NOTE | 2021-08-02 17:38 | PT.OTN ---
Current Diagnoses Other cervical disc degeneration, unspecified cervical region (08/02/21) Radiculopathy, lumbar region (08/02/21) Cervicalgia (08/02/21) Other muscle spasm (08/02/21) Physical Therapy Treatment Note PT-OP-A Visit Information Start: 07/12/21 16:51 Freq: Status: Active Protocol: Document 08/02/21 16:45 DCW (Rec: 08/02/21 17:38 DCW [id number]) Out-Patient Physical Therapy Visit Information Visit Information Visit Type Treatment Note Visit Start Time 16:45 Visit Stop Time 17:30 Total Visit Minutes 45 Visit Number 6 Number of MULTIMEDIA SPECIALIST Visits 0 Evaluation Information Evaluation Date 07/12/21 PT-OP-B Current Condition Start: 07/12/21 16:51 Freq: Status: Active Protocol: Document 07/12/21 09:45 DCW (Rec: 07/12/21 17:05 DCW [id number]) Current Condition History of Current Condition Onset Date Long-standing history Current Complaints Cervical pain, radicular right arm and shoulder pain History of Current Condition Pt is a 60 year old male presenting with worsening complaints of neck pain and right shoulder pain. 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 Pt notes he always does this with is right hand, and it seems as though he is beginning to have more and more pain and difficulty when he does it. Pt notes he has the most pain just letting his arm hang down at his side , reports it just hangs there and feels heavy. Has noticed that if he props his arm up with an arm rest or holds it over his head, it doesn't hurt as much. Pt reports that just last night, he was woken up by an 8/10. Pt also does note that he has a 40+ year history of low back pain since slipping and falling when he was in the [employer] in the early 80s. Slowly progressed from intermittent pain to a fairly constant and debilitating pain , but had a steroid injection a few years ago, which seems to have fixed it for now, but he would also like his low back addressed if possible, so he doesn't need to worry about another injection in the future. PT-OP-C Subjective Start: 07/12/21 16:51 Freq: Status: Active Protocol: Document 08/02/21 16:45 DCW (Rec: 08/02/21 17:38 DCW [id number]) OP-PT Subjective Patient Comments Patient Comments Things are going really well, I'm feeling good. Patient Questionnaires Quick Dash- Upper Extremity Quick Dash UE Score 25% Quick Dash UE Impairment 20 to 39% Impaired (Score 20- 39) PT-OP-F Manual Assessment Start: 07/12/21 16:51 Freq: Status: Active Protocol: Document 07/12/21 09:45 DCW (Rec: 07/12/21 17:16 DCW [id number]) Manual Assessments Soft Tissue Assessment Soft Tissue Mobility Assessment Moderate-severe tone with tenderness to palpation 3/4: wincing and withdraw along right suboccipitals, cervical paraspinals, levator scap, upper trap, and parascapular musculature. Joint Mobility Assessment Joint Mobility Assessment Very poor right scapulothoracic rhythm with shoulder abduction, entire right shoulder depressed at rest PT-OP-J Posture/Palpation/Skin Start: 07/12/21 17:17 Freq: Status: Active Protocol: Document 07/12/21 09:45 DCW (Rec: 07/12/21 17:18 DCW [id number]) Posture Evaluation Position Sitting Evaluation View Posterior Head/C-Spine Posture Rotated Right,Side Bent Right Scapula Posture (R) Rotated Down,(R) Depressed PT-OP-K Range of Motion Start: 07/12/21 16:51 Freq: Status: Active Protocol: Document 07/12/21 09:45 DCW (Rec: 07/12/21 17:16 DCW [id number]) Cervical Spine Range of Motion Cervical Spine Active Degrees Testing Position Sitting Flexion 40 Extension 30 Rotation Left 70 Rotation Right 72 Lateral Flexion Left 25 Lateral Flexion Right 35 ROM Limitations Soft Tissue Tightness,Muscle Tone,Pain PT-OP-L Special Tests Start: 07/12/21 16:51 Freq: Status: Active Protocol: Document 07/12/21 09:45 DCW (Rec: 07/12/21 17:16 DCW [id number]) Special Tests Cervical Spine Special Tests Traction Test Results Instant relief of symptoms Spurling's Test Test Results Positive Slump Test Results Positive Passive Neck Flexion Test Results Positive Foraminal Compression Test Results Positive Shoulder Special Tests Painful Arc Test Results Positive R Passive ER Rotator Cuff Test Results Negative Empty Can Test Results Negative Drop Arm Rotator Cuff Test Results Negative Belly Press Test Results Negative PT-OP-M Strength Start: 07/12/21 16:51 Freq: Status: Active Protocol: Document 07/12/21 09:45 DCW (Rec: 07/12/21 17:16 DCW [id number]) Cervical Spine Strength Cervical Spine Manual Muscle Testing Comments Attempted deep neck flexor activation resulted in instant increased radicular symptoms Shoulder Strength Shoulder Manual Muscle Testing Right Flexion 4 Good Abduction (C5) 4 Good External Rotation 4 Good Internal Rotation 4 Good Left Flexion 4+ Good+ Abduction (C5) 4+ Good+ External Rotation 4+ Good+ Internal Rotation 4+ Good+ PT-OP-Q Treatments Start: 07/12/21 16:51 Freq: Status: Active Protocol: Document 08/02/21 16:45 DCW (Rec: 08/02/21 17:38 DCW [id number]) Manual Therapy Treatment Soft Tissue Mobilization STMs Body Location UT, suboccipitals, pecs Manual Traction Cervical Body Position Supine Manual Techniques PNF R scapulothoracic Type retraction/ depression Body Location R scap comples Body Position L Sidelying PT-OP-R Modalities Start: 07/12/21 16:51 Freq: Status: Active Protocol: Document 08/02/21 16:45 DCW (Rec: 08/02/21 17:38 DCW [id number]) Spinal Traction Traction Treatment Cervical Method Static Patient Position Supine Force Applied (Pounds) 20 Duration of Treatment (Minutes) 10 Heating Pad Applied No Traction Treatment Comment wedge under BLE: instant pain relief. PT-OP-T Assessment and Plan Start: 07/12/21 16:51 Freq: Status: Active Protocol: Document 08/02/21 16:45 DCW (Rec: 08/02/21 17:38 DCW [id number]) Physical Therapy Assessment Goals Three Impairment All cervical compression results in increased radicular symptoms Metal Engineering Process Worker Goal (LTG) Pt to tolerate all cervical positioning and compression without increased radicular symptoms to show certralization of pain LTG Duration 09/12/21 Two Impairment Cervical/shoulder pain interrupts pt's sleep [facility] Goal (LTG) Pt to report no instances of pain-caused sleep disturbances over an entire week. LTG Duration 09/12/21 One Impairment Pt does not have an appropriate home exercise program Short Term Goal (STG) Pt to be independent and compliant with an appropriate HEP STG Duration 08/12/21 Assessment Summary Assessment Pt making better progress recently, less pain with STM and improved cervical and shoulder mobility. Still having radicular pain neck/ shoulder to elbow, which is relieved by traction Physical Therapy Plan Frequency and Duration Frequency of Treatment 2x/Week Duration of Treatment Two months Plan of Care Start Date 07/12/21 Plan of Care End Date 09/12/21 Therapeutic Interventions Therapeutic Interventions Home Exercise Program,Joint Mobilizations,Manual Therapy, Neuromuscular Re-education, Patient/Caregiver Education, Self-Care/Home Management,Soft Tissue Mobilization, Therapeutic Activities, Therapeutic Exercises Modalities Cold Pack/Ice Massage,Electric Stimulation,Hot Packs, Traction- Mechanical Next Visit Focus/Plan Next Note Type Treatment Note Next Visit Plan Assess reponse to HEP and carryover deminished relief from mechanical cervical traction end of last tx. NExt tx: continue traction, assess if home unit beneficial , start process. POC: Traction, STM, joint mobs , cervical strengthening as tolerated
--- NOTE | 2021-08-04 09:00 | PT.OTN ---
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 Pt notes he always does this with is right hand, and it seems as though he is beginning to have more and more pain and difficulty when he does it. Pt notes he has the most pain just letting his arm hang down at his side , reports it just hangs there and feels heavy. Has noticed that if he props his arm up with an arm rest or holds it over his head, it doesn't hurt as much. Pt reports that just last night, he was woken up by an 8/10. Pt also does note that he has a 40+ year history of low back pain since slipping and falling when he was in the [employer] in the early 80s. Slowly progressed from intermittent pain to a fairly constant and debilitating pain , but had a steroid injection a few years ago, which seems to have fixed it for now, but he would also like his low back addressed if possible, so he doesn't need to worry about another injection in the future. PT-OP-C Subjective Start: 07/12/21 16:51 Freq: Status: Active Protocol: Document 08/04/21 08:14 SP (Rec: 08/04/21 09:03 SP [id number]) OP-PT Subjective Patient Comments Patient Comments Pt reported slipped on garage stairs and landed on his low back/ pelvis but inadvertently made his neck pain go away. States only having slight discomfort in R shld. Compliant with HEP and no problems and recorrrecting posture in passengers seat to decreased irritation gets up into mid back and neck. He also stated sees coworkers doing stretching and discussing doing yoga and helps them feel better, not tight/ discomfort, wondering science behind that. PT-OP-F Manual Assessment Start: 07/12/21 16:51 Freq: Status: Active Protocol: Document 07/12/21 09:45 DCW (Rec: 07/12/21 17:16 DCW [id number]) Manual Assessments Soft Tissue Assessment Soft Tissue Mobility Assessment Moderate-severe tone with tenderness to palpation 3/4: wincing and withdraw along right suboccipitals, cervical paraspinals, levator scap, upper trap, and parascapular musculature. Joint Mobility Assessment Joint Mobility Assessment Very poor right scapulothoracic rhythm with shoulder abduction, entire right shoulder depressed at rest PT-OP-J Posture/Palpation/Skin Start: 07/12/21 17:17 Freq: Status: Active Protocol: Document 07/12/21 09:45 DCW (Rec: 07/12/21 17:18 DCW [id number]) Posture Evaluation Position Sitting Evaluation View Posterior Head/C-Spine Posture Rotated Right,Side Bent Right Scapula Posture (R) Rotated Down,(R) Depressed PT-OP-K Range of Motion Start: 07/12/21 16:51 Freq: Status: Active Protocol: Document 07/12/21 09:45 DCW (Rec: 07/12/21 17:16 DCW [id number]) Cervical Spine Range of Motion Cervical Spine Active Degrees Testing Position Sitting Flexion 40 Extension 30 Rotation Left 70 Rotation Right 72 Lateral Flexion Left 25 Lateral Flexion Right 35 ROM Limitations Soft Tissue Tightness,Muscle Tone,Pain PT-OP-L Special Tests Start: 07/12/21 16:51 Freq: Status: Active Protocol: Document 07/12/21 09:45 DCW (Rec: 07/12/21 17:16 DCW [id number]) Special Tests Cervical Spine Special Tests Traction Test Results Instant relief of symptoms Spurling's Test Test Results Positive Slump Test Results Positive Passive Neck Flexion Test Results Positive Foraminal Compression Test Results Positive Shoulder Special Tests Painful Arc Test Results Positive R Passive ER Rotator Cuff Test Results Negative Empty Can Test Results Negative Drop Arm Rotator Cuff Test Results Negative Belly Press Test Results Negative PT-OP-M Strength Start: 07/12/21 16:51 Freq: Status: Active Protocol: Document 07/12/21 09:45 DCW (Rec: 07/12/21 17:16 DCW [id number]) Cervical Spine Strength Cervical Spine Manual Muscle Testing Comments Attempted deep neck flexor activation resulted in instant increased radicular symptoms Shoulder Strength Shoulder Manual Muscle Testing Right Flexion 4 Good Abduction (C5) 4 Good External Rotation 4 Good Internal Rotation 4 Good Left Flexion 4+ Good+ Abduction (C5) 4+ Good+ External Rotation 4+ Good+ Internal Rotation 4+ Good+ PT-OP-Q Treatments Start: 07/12/21 16:51 Freq: Status: Active Protocol: Document 08/04/21 08:14 SP (Rec: 08/04/21 09:03 SP [id number]) Therapeutic Exercises Supine Exercises 3 Supine Exercise Name Supine shoulder flexion Side bilateral Resistance 2# DB Reps/Minutes x10 Comments painfree range 2 Supine Exercise Name Serratus punch Side bilateral Resistance 2# DB Reps/Minutes x10 Comments 1 press, little twinge in R AC, cued scap depression 1 Supine Exercise Name HABD Side bilateral Resistance 2# DB Reps/Minutes x10 Comments irritated GH Jt so stopped Sidelying Exercises shld ER Sidelying Exercise Name added to HEP Side right Resistance #2 DB Equipment Used towel under arm Reps/Minutes x10 Comments painfree, cued no [place] recruit. open book Sidelying Exercise Name HEP Side right Resistance AROM> #2 DB Reps/Minutes x5 w/ and without 3 breath Comments cued head turn with arm- good feedback painfree Standing Exercises shld ER Standing Exercise Name added to HEP Side bilateral Resistance TB #1 Equipment Used back to wall Reps/Minutes x10 Comments cued postural alignment rows Standing Exercise Name added to HEP Side bilateral Resistance TB #1 Reps/Minutes x10 Comments cued for scap stab: retract/ depress CS retraction w/ elevated posture Standing Exercise Name reviewed HEP- understands in successful positioning Equipment Used back to wall Reps/Minutes 3 reps x5 sec hold Comments good feedback, cued awareness TA Manual Therapy Treatment Soft Tissue Mobilization STMs Body Location UT, lev scap, infraspinatus. Mobilization Type Instrument Assisted,Strumming, Sustained Pressure,Trigger Point Release Joint Mobilizations scapulothoracic mobs Joint inferior/ depression for mobility awareness for open book and added DB Comments improved AROM post manual PT-OP-R Modalities Start: 07/12/21 16:51 Freq: Status: Active Protocol: Document 08/02/21 16:45 DCW (Rec: 08/02/21 17:38 DCW [id number]) Spinal Traction Traction Treatment Cervical Method Static Patient Position Supine Force Applied (Pounds) 20 Duration of Treatment (Minutes) 10 Heating Pad Applied No Traction Treatment Comment wedge under BLE: instant pain relief. PT-OP-T Assessment and Plan Start: 07/12/21 16:51 Freq: Status: Active Protocol: Document 08/04/21 08:14 SP (Rec: 08/04/21 09:03 SP [id number]) Physical Therapy Assessment Goals Three Impairment All cervical compression results in increased radicular symptoms Wildlife Ecologist Goal (LTG) Pt to tolerate all cervical positioning and compression without increased radicular symptoms to show certralization of pain LTG Duration 09/12/21 Two Impairment Cervical/shoulder pain interrupts pt's sleep Detention Goal (LTG) Pt to report no instances of pain-caused sleep disturbances over an entire week. LTG Duration 09/12/21 One Impairment Pt does not have an appropriate home exercise program Short Term Goal (STG) Pt to be independent and compliant with an appropriate HEP STG Duration 08/12/21 Assessment Summary Assessment Pt was able to progress light resistance strengthening without pain, cued for postural corrections for alignment and form with improvement. Decreased pain manual infraspinatus and self ball on wall was helpful today , did to long and to hard at home but better understanding during tx for benefits. Physical Therapy Plan Frequency and Duration Frequency of Treatment 2x/Week Duration of Treatment Two months Plan of Care Start Date 07/12/21 Plan of Care End Date 09/12/21 Therapeutic Interventions Therapeutic Interventions Home Exercise Program,Joint Mobilizations,Manual Therapy, Neuromuscular Re-education, Patient/Caregiver Education, Self-Care/Home Management,Soft Tissue Mobilization, Therapeutic Activities, Therapeutic Exercises Modalities Cold Pack/Ice Massage,Electric Stimulation,Hot Packs, Traction- Mechanical Next Visit Focus/Plan Next Note Type Treatment Note Next Visit Plan Assess reponse to HEP. If continue no pain in neck. NExt tx: continue traction, assess if home unit beneficial , start process. POC: Traction, STM, joint mobs , cervical strengthening as tolerated
--- NOTE | 2022-05-30 16:54 | PT.OPDS ---
Current Diagnoses Other cervical disc degeneration, unspecified cervical region (08/04/21) Radiculopathy, lumbar region (08/04/21) Cervicalgia (08/04/21) Other muscle spasm (08/04/21) Visit Care Team Role Provider Type Rickie Kumar MD Attending Provider Physician Family Provider Primary Care Provider Referring Provider Specialty: Internal Medicine Address: [address] [place] [address], [address], [facility] Email: [email or web address] Visit Number Visit Number 7 Discharge Summary PT-OP-B Current Condition Start: 07/12/21 16:51 Freq: Status: Active Protocol: Document 07/12/21 09:45 DCW (Rec: 07/12/21 17:05 DCW [id number]) Current Condition History of Current Condition Onset Date Long-standing history Current Complaints Cervical pain, radicular right arm and shoulder pain History of Current Condition Pt is a 60 year old male presenting with worsening complaints of neck pain and right shoulder pain. 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 Pt notes he always does this with is right hand, and it seems as though he is beginning to have more and more pain and difficulty when he does it. Pt notes he has the most pain just letting his arm hang down at his side , reports it just hangs there and feels heavy. Has noticed that if he props his arm up with an arm rest or holds it over his head, it doesn't hurt as much. Pt reports that just last night, he was woken up by an 8/10. Pt also does note that he has a 40+ year history of low back pain since slipping and falling when he was in the [employer] in the early 80s. Slowly progressed from intermittent pain to a fairly constant and debilitating pain , but had a steroid injection a few years ago, which seems to have fixed it for now, but he would also like his low back addressed if possible, so he doesn't need to worry about another injection in the future. PT-OP-C Subjective Start: 07/12/21 16:51 Freq: Status: Active Protocol: Document 08/04/21 08:14 SP (Rec: 08/04/21 09:03 SP [id number]) OP-PT Subjective Patient Comments Patient Comments Pt reported slipped on garage stairs and landed on his low back/ pelvis but inadvertently made his neck pain go away. States only having slight discomfort in R shld. Compliant with HEP and no problems and recorrrecting posture in passengers seat to decreased irritation gets up into mid back and neck. He also stated sees coworkers doing stretching and discussing doing yoga and helps them feel better, not tight/ discomfort, wondering science behind that. PT-OP-F Manual Assessment Start: 07/12/21 16:51 Freq: Status: Active Protocol: Document 07/12/21 09:45 DCW (Rec: 07/12/21 17:16 DCW [id number]) Manual Assessments Soft Tissue Assessment Soft Tissue Mobility Assessment Moderate-severe tone with tenderness to palpation 3/4: wincing and withdraw along right suboccipitals, cervical paraspinals, levator scap, upper trap, and parascapular musculature. Joint Mobility Assessment Joint Mobility Assessment Very poor right scapulothoracic rhythm with shoulder abduction, entire right shoulder depressed at rest PT-OP-J Posture/Palpation/Skin Start: 07/12/21 17:17 Freq: Status: Active Protocol: Document 07/12/21 09:45 DCW (Rec: 07/12/21 17:18 DCW [id number]) Posture Evaluation Position Sitting Evaluation View Posterior Head/C-Spine Posture Rotated Right,Side Bent Right Scapula Posture (R) Rotated Down,(R) Depressed PT-OP-K Range of Motion Start: 07/12/21 16:51 Freq: Status: Active Protocol: Document 07/12/21 09:45 DCW (Rec: 07/12/21 17:16 DCW [id number]) Cervical Spine Range of Motion Cervical Spine Active Degrees Testing Position Sitting Flexion 40 Extension 30 Rotation Left 70 Rotation Right 72 Lateral Flexion Left 25 Lateral Flexion Right 35 ROM Limitations Soft Tissue Tightness,Muscle Tone,Pain PT-OP-L Special Tests Start: 07/12/21 16:51 Freq: Status: Active Protocol: Document 07/12/21 09:45 DCW (Rec: 07/12/21 17:16 DCW [id number]) Special Tests Cervical Spine Special Tests Traction Test Results Instant relief of symptoms Spurling's Test Test Results Positive Slump Test Results Positive Passive Neck Flexion Test Results Positive Foraminal Compression Test Results Positive Shoulder Special Tests Painful Arc Test Results Positive R Passive ER Rotator Cuff Test Results Negative Empty Can Test Results Negative Drop Arm Rotator Cuff Test Results Negative Belly Press Test Results Negative PT-OP-M Strength Start: 07/12/21 16:51 Freq: Status: Active Protocol: Document 07/12/21 09:45 DCW (Rec: 07/12/21 17:16 DCW [id number]) Cervical Spine Strength Cervical Spine Manual Muscle Testing Comments Attempted deep neck flexor activation resulted in instant increased radicular symptoms Shoulder Strength Shoulder Manual Muscle Testing Right Flexion 4 Good Abduction (C5) 4 Good External Rotation 4 Good Internal Rotation 4 Good Left Flexion 4+ Good+ Abduction (C5) 4+ Good+ External Rotation 4+ Good+ Internal Rotation 4+ Good+ PT-OP-T Assessment and Plan Start: 07/12/21 16:51 Freq: Status: Active Protocol: Document 05/30/22 16:54 DCW (Rec: 05/30/22 16:54 DCW [id number]) Physical Therapy Assessment Assessment Summary Assessment Pt has now not been seen in more than 9 months, will discharge from skilled therapy at this time. Physical Therapy Plan Discharge Physical Therapy Discharge Reasons No Longer Attending PT
== END 2022-06-01 10:56 | disposition home or self-care (01) ==
LOC: PHYS 08:15
PROVIDERS: Family Provider Student in an Organized Health Care Education/Training Program; PCP Student in an Organized Health Care Education/Training Program; Referring Provider Student in an Organized Health Care Education/Training Program; Visit Provider Student in an Organized Health Care Education/Training Program
DX: M62.838 Other muscle spasm (principal); M54.16 Radiculopathy, lumbar region; M50.30 Other cervical disc degeneration, unspecified cervical region
CPT/HCPCS: 97012; 97110; 97140; 97161; 97535

== ENCOUNTER → 2022-09-11 08:53 | Outpatient (CLI) | payer OTHER, SELFPAY ==
[2022-09-11 10:44] LABS: BUN Creatinine Ratio 25.4 (6-22); Blood Urea Nitrogen 18 mg/dL (9-20); Calcium 8.9 mg/dL (8.4-10.2); Carbon Dioxide 27 mmol/L (22-32); Chloride 106 mmol/L (98-107); Estimated Glomerular Filt Rate > 60 mL/min (>60); Glucose 90 mg/dL (80-110); HEMOLYSIS 36 (0-50); Potassium 4.1 mmol/L (3.4-5.1); Sodium 141 mmol/L (137-145)
[2022-09-11 10:53] LABS: Vitamin D 25 Hydroxy (D3) 21.1 ng/mL (30.0-100.0)
[2022-09-11 11:10] LABS: Prostate Specific Antigen Scrn 2.21 ng/mL (0.1-4.0)
[2022-09-11 15:53] LABS: Hep C Virus Ab w/Reflex Quant NEGATIVE s/c (NEGATIVE)
== END ==
PROVIDERS: Family Provider Student in an Organized Health Care Education/Training Program; PCP Student in an Organized Health Care Education/Training Program; Referring Provider Student in an Organized Health Care Education/Training Program; Visit Provider Student in an Organized Health Care Education/Training Program
DX: Z12.5 Encounter for screening for malignant neoplasm of prostate (principal); Z11.59 Encounter for screening for other viral diseases; F32.9 Major depressive disorder, single episode, unspecified; M48.062 Spinal stenosis, lumbar region with neurogenic claudication; Z79.899 Other long term (current) drug therapy; E55.9 Vitamin D deficiency, unspecified
CPT/HCPCS: 36415; 80048; 82306; 86803; G0103

== ENCOUNTER 2022-10-26 09:35 | Day surgery (SDC) | payer OTHER, SELFPAY ==
--- NOTE | 2022-10-26 | PATH_ITS ---
[facility] Accession Number: [id number] No. of containers..01 Tissue . 01 Material submitted: . sigmoid colon - SIGMOID COLON POLYP . 01 Diagnosis: Sigmoid Colon Polyp: Colonic mucosa with focal mucosal hyperplasia. Negative for dysplasia or malignancy. Additional step sections examined. MRV 11/01/2022 1445 Local . 01 Electronically signed: . Jaswinder Nunez MD, PhD, Pathologist NPI- [id number] . 01 Gross description: . SIGMOID COLON POLYP: Received in formalin is 1 fragment(s) of garcia, soft tissue measuring 0.2 x 0.2 x 0.2 cm submitted entirely in 1 cassette(s) /KASSANDRA 10/28/2022 0000 Local . 01 Pathologist provided ICD-10: K63.5 . 01 CPT . 248070 Specimen Comment: A courtesy copy of this report has been sent to [phone] Performed at: 01 [facility] [address] [place] [address], [place], [place] [id number] MD Ryder Serra MD Phone: [phone]
[2022-10-26 09:57] VITALS: BP 106/67; PULSE 60; RESP 17; TEMP 36.6; O2SAT 100; BMI 30.2
[2022-10-26] MEDS: LACTATED RINGERS 1,000 ML 42 ML IV (10:12)
--- NOTE | 2022-10-26 10:40 | PM.HP.1 ---
History of Present Illness History of Present Illness Date Patient Seen: 10/26/22 Time Patient Seen: 10:40 Chief complaint: Colonoscopy Narrative: colon cancer screening, last scope was 10 years ago. No family history or problems. PENDING SALE TO [facility] Medical History ADHD Anorexia nervosa Depression Lower back injury (~1980) Family History Father No problems noted. Mother Stroke Glaucoma Grandfather No problems noted. Grandmother No problems noted. Grandfather No problems noted. Grandmother No problems noted. Social History household members: spouse Smoking Status: Former smoker alcohol intake: former Meds Home Medications and Allergies Home Medications Medication Instructions Recorded Confirmed Type latanoprost 0.005 % eye drops EYE-LEFT 07/11/18 09/11/22 History valacyclovir 500 mg tablet 500 mg PO BID #12 tabs 07/18/22 09/11/22 Rx escitalopram oxalate 10 mg tablet 10 mg PO DAILY #90 tabs 09/11/22 09/11/22 Rx gabapentin 600 mg tablet 600 mg PO BEDTIME #90 tabs 09/11/22 09/11/22 Rx ropinirole 4 mg tablet 4 mg PO BEDTIME #90 tabs 09/11/22 09/11/22 Rx cholecalciferol (vitamin D3) 125 125 mcg PO DAILY #90 caps 09/12/22 Rx mcg (5,000 unit) capsule Allergies Allergy/AdvReac Type Severity Reaction Status Date / Time No Known Drug Allergies Allergy Unverified 09/11/22 07:58 Review of Systems Review of Systems ROS: Yes All systems reviewed with the patient and are negative except as otherwise documented Exam Vital Signs (past 8 hours): - 10/26/22 09:57 Temperature 97.9 F Pulse Rate 60 Respiratory Rate 17 Blood Pressure 106/67 Pulse Oximetry 100 Oxygen Delivery Method Room Air Oxygen Delivery Method Room Air Const General: cooperative, comfortable and anxious HENMT Head: normocephalic and atraumatic Eyes General: appearance normal, both eyes and all related structures Sclera: sclerae normal Neck Neck: trachea midline Resp Effort & Inspection: normal respiratory effort and able to speak in complete sentences Cardio Rate: regular rate Rhythm: regular rhythm GI Palpation: soft Skin General: elasticity normal Neuro General: patient alert, patient awake and patient oriented x3 Speech: speech normal Psych Appearance: grossly normal Judgment: judgment good Assessment & Plan Assessment & Plan narrative: colon cancer screening using colonoscopy under MAC Time Spent With Patient Time with patient: less than 30 minutes
--- NOTE | 2022-10-26 11:07 | PM.OP.COLON ---
Operative Date/Time/Diagnoses Date of procedure: 10/26/22 Time of procedure: 11:16 Pre-op diagnosis: colon cancer screening Post-op diagnosis: same Procedure & Clinicians Study performed: colonoscopy w MAC Same procedure as scheduled: Yes Indications: colon cancer screening Surgeon: Terri Paul Procedure Notes Procedure in detail: Preop diagnosis: Colon cancer screening Postop diagnosis: Same Operative procedure: Colonoscopy using MAC and a cold forceps polypectomy Surgeon: Meli Paul MD Findings: Normal looking colon. No significant diverticulosis. Single 3 mm polyp in the rectosigmoid region taken with cold forceps. Procedure: Patient placed in a lateral position. Rectal exam performed showing normal tone no masses. Colonoscope was inserted into the rectum and advanced to ileocecal valve with minimal difficulty. Insufflation extraction scope and the above findings. Impression: No significant diverticulosis. Single 3 mm polyp in the sigmoid rectal region that may in fact be benign. Plan: Await pathology results to determine if 10 year recall Plan is appropriate Findings: polyp(s) Specimen(s): other (3 mm polyp rectosigmoid region) Complications: none Post-procedure Recommendations: Colonoscopy in 10 years Follow up: as needed Disposition: PACU
[2022-10-26 11:36] VITALS: BP 112/77; PULSE 75; RESP 14; TEMP 36.7; O2SAT 97
[2022-10-26 11:41] VITALS: BP 104/75; PULSE 82; RESP 19; TEMP 36.7; O2SAT 98
[2022-10-26 11:51] VITALS: BP 111/74; PULSE 72; RESP 18; TEMP 36.6; O2SAT 99
--- NOTE | 2022-10-26 11:57 | SUR.PHASEII ---
DC home with via WC, all belongings with patient. denies pain, tolerating PO
== END 2022-10-26 11:58 | disposition home or self-care (01) ==
PROVIDERS: Surgery; Family Provider Student in an Organized Health Care Education/Training Program; PCP Student in an Organized Health Care Education/Training Program; Referring Provider Surgery; Visit Provider Surgery
PROC: 0DJD8ZZ Inspection of Lower Intestinal Tract, Via Natural or Artificial Opening Endoscopic (ICD-10-PCS; CPT 45378; principal; 2022-10-26 10:00)
DX: Z12.11 Encounter for screening for malignant neoplasm of colon (principal); K63.5 Polyp of colon
CPT/HCPCS: 45380; J2704

== ENCOUNTER → 2025-04-06 10:35 | Outpatient (CLI) | payer OTHER, SELFPAY ==
[2025-04-06 11:45] LABS: Add Manual Diff / Slide Review NO; Hematocrit 43.3 % (41-53); Hemoglobin 15.1 g/dL (13.5-17.5); Lymphocytes Absolute Auto 1700 /uL (1100-4500); Mean Corpuscular HGB Conc 35.0 % (30-36); Mean Corpuscular Hemoglobin 30.5 PG (26-34); Mean Corpuscular Volume 87.1 fL (80-100); Platelet Count 190 X10^3/uL (150-400)
[2025-04-06 12:02] LABS: Hemoglobin A1C% w Est Avg Glu 5.3 % (4.0-6.0)
[2025-04-06 12:16] LABS: Alanine Aminotransferase 28 IU/L (<50); Albumin 4.5 g/dL (3.5-5.0); Albumin Globulin Ratio 1.7 (1.0-2.8); Alkaline Phosphatase 66 U/L (38-126); Blood Urea Nitrogen 16 mg/dL (9-20); Calcium 9.5 mg/dL (8.4-10.2); Carbon Dioxide 29 mmol/L (22-32); Chloride 102 mmol/L (98-107); Cholesterol 181 mg/dL (140-199); Estimated Glomerular Filt Rate > 60 mL/min (>60); Globulin 2.6 g/dL (1.7-4.1); Glucose 90 mg/dL (70-99); HDL Cholesterol 34 mg/dL (40-60); HEMOLYSIS < 15 (0-50); Potassium 4.0 mmol/L (3.4-5.1); Sodium 141 mmol/L (137-145); Total Protein 7.1 g/dL (6.3-8.2); Triglycerides 185 mg/dL (35-150)
[2025-04-06 12:22] LABS: Vitamin D 25 Hydroxy (D3) 43.2 ng/mL (30.0-100.0)
[2025-04-06 12:43] LABS: TSH w/ Reflex to FT4 1.07 uIU/mL (0.47-4.68)
[2025-04-06 13:03] LABS: Vitamin B12 420 pg/mL (239-931)
== END ==
PROVIDERS: PCP Family Medicine; Referring Provider Family Medicine; Visit Provider Family Medicine
DX: F33.42 Major depressive disorder, recurrent, in full remission (principal); E55.9 Vitamin D deficiency, unspecified; E78.00 Pure hypercholesterolemia, unspecified
CPT/HCPCS: 36415; 80053; 80061; 82306; 82607; 83036; 84443; 85025